=== PATIENT | male | born 1980 | race African-American/Black ===

== ENCOUNTER 2021-05-07 22:18 | Emergency (ER) | payer OTHER ==
[~2021-05-07] VITALS: Ht 167.6 cm; Wt 79.4 kg
[2021-05-08] MEDS ORDERED: ZOFRAN ODT4 MG PO (00:49)
[2021-05-08 00:57] VITALS: BP 117/69
[2021-05-11] MEDS ORDERED: AZITHROMYCIN 2250 MG PO (13:26)
== END 2021-05-08 01:01 | disposition home or self-care (01) ==
LOC: ER 22:18
PROVIDERS: Emergency Medicine
DX: R10.12 Left upper quadrant pain (principal); Z20.822 Contact with and (suspected) exposure to COVID-19; J02.9 Acute pharyngitis, unspecified; F17.210 Nicotine dependence, cigarettes, uncomplicated; F12.90 Cannabis use, unspecified, uncomplicated; Z88.8 Allergy status to other drugs, medicaments and biological substances

== ENCOUNTER 2021-06-17 09:49 | Emergency (ER) | payer OTHER ==
[~2021-06-17] VITALS: Ht 167.6 cm; Wt 79.4 kg
[~2021-06-17 09:49] MED LIST: AZITHROMYCIN 2250 MG PO; ZOFRAN ODT4 MG PO
[2021-06-17 12:00] VITALS: BP 132/94
== END 2021-06-17 12:06 | disposition home or self-care (01) ==
LOC: ER 09:49
DX: M25.512 Pain in left shoulder (principal); Z88.8 Allergy status to other drugs, medicaments and biological substances

== ENCOUNTER 2021-08-03 11:21 | Emergency (ER) | payer OTHER ==
[~2021-08-03] VITALS: Ht 167.6 cm; Wt 79.4 kg
[2021-08-03 11:47] LABS: ABSOLUTE NEUTROPHILS 2.4 thou/uL (1.4-8.2); BASOPHILS 0.8 % (0.0-2.0); HEMATOCRIT 47.2 % (42.0-52.0); HEMOGLOBIN 16.7 gm/dL (14.0-18.0); LYMPHOCYTES 38.5 % (24.0-44.0); MCH 33.1 pg (26.0-34.0); MCHC 35.3 g/dL (28.0-37.0); MCV 93.8 fL (80.0-100.0); PLATELET COUNT 314 thou/uL (150-400); POLYS 46.7 % (36.0-66.0); RBC 5.04 mil/uL (4.50-6.00); RDW 13.3 % (10.5-14.5); WBC 5.1 thou/uL (4.0-11.0)
[2021-08-03 11:54] LABS: CALCIUM 9.1 mg/dL (8.5-10.1); CREATININE 1.2 mg/dL (0.7-1.3); POTASSIUM 3.8 mmol/L (3.5-5.1)
[2021-08-03 12:50] LABS: ALBUMIN 4.3 g/dL (3.4-5.0); TOTAL BILIRUBIN 0.5 mg/dL (0.2-1.0); TOTAL PROTEIN 7.7 g/dL (6.4-8.2)
[2021-08-03] MEDS ORDERED: PEPCID20 MG PO (15:49)
[2021-08-03 16:01] VITALS: BP 135/85
--- NOTE | 2021-08-04 07:37 | EKG ---
[facility] [place] [address] ELECTROCARDIOGRAM REPORT Name: [facility] Room #: [facility] VANE Long#: [id number] Admission: 08/03/21 Attend Phys: Discharge: 08/03/21 Date of : 82 Report #: [id number] [facility] ED Test Date: 2021-08-03 Test Time: 11:26:56 Pat Name: [facility] Department: Room: Gender: Epic Professional: ALEKS : 1980 Requested By: Osmar Hagan Order Number: [id number] MD: Sebastian Denson Measurements Intervals [place] Rate: 75 P: 57 IA: 136 QRS: 51 QRSD: 97 T: 75 QT: 353 QTc: 395 Interpretive Statements Sinus rhythm Probable left atrial enlargement RSR' in V1 or V2, probably normal variant Borderline T wave abnormalities No previous ECG available for comparison Electronically Signed On 08-04-2021 7:37:10 EVP MANAGING DIRECTOR by Sebastian Denson [email or web address] <ELECTRONICALLY SIGNED> By: Sebastian Denson MD, [facility] 08/04/21 0737 [id number] Sebastain Denson MD, FACC /EPI
== END 2021-08-03 16:02 | disposition home or self-care (01) ==
LOC: ER 11:21
PROVIDERS: Emergency Medicine
DX: F41.9 Anxiety disorder, unspecified (principal); R07.89 Other chest pain; R10.13 Epigastric pain; F12.90 Cannabis use, unspecified, uncomplicated; Z88.8 Allergy status to other drugs, medicaments and biological substances

== ENCOUNTER 2021-09-08 09:37 | Emergency (ER) | payer OTHER ==
[~2021-09-08 09:37] MED LIST changes: +PEPCID20 MG PO
== END 2021-09-08 09:52 | disposition left against medical advice (07) ==
LOC: ER 09:37
DX: R06.02 Shortness of breath (principal); Z53.21 Procedure and treatment not carried out due to patient leaving prior to being seen by health care provider